=== PATIENT | male | born 1950 | race Caucasian/White ===

== ENCOUNTER → 2016-12-23 | Outpatient (CLI) | payer MEDICARE, OTHER ==
[~2016-12-23] MED LIST: ACETAMINOPHEN PO; ALBUTEROL MININEB NEB; ALLOPURINOL300 MG PO; ASA-CA CARB-MA325 MG PO; ASPIRIN81 M2 PO; BUSPAR15 M1 PO; CITALOPRAM HBR40 MG PO; CLARITIN10 M2 PO; CLARITIN10 M3 PO; COLCHICINE0.6 M1 PO; COUMADIN5 MG PO; FISH OIL 1,2001 CAP PO; FUROSEMIDE40 MG PO; GLIPIZIDE10 MG PO; GLUCOPHAGE500 MG PO; GLUCOTROL PO; HUMIBID-LA600 MG PO; ISOSORBIDE MONO60 M1 PO; LASIX20 MG PO; LIPITOR PO; LOVENOX100 MG/ML INJ; METOPROLOL SUCC50 MG PO; NIASPAN PO; NYSTATIN5 ML PO; PLAVIX PO; PREDNISONE PO; PRILOSEC20 M1 PO; PRINIVIL10 MG PO; PRINIVIL20 M1 PO; PRINIVIL40 MG PO; SYMBICORT INH; TOPROL XL 50 MG50 MG PO; TRAZODONE HCL100 MG PO; TROKENDI XR200 MG PO; VIAGRA PO; ZITHROMAX500 MG PO
[2016-12-23 10:18] LABS: BUN/CREATININE RATIO 21.66; CALCIUM SERUM 9.2 mg/dL (8.4-10.2); CREATININE SERUM 1.2 mg/dL (0.6-1.4); GLOM FILT RATE Estimated 62.7 mL/min (>60); POTASSIUM 4.5 mmol/L (3.5-5.1); URIC ACID 10.8 mg/dL (2.6-7.2)
== END | disposition home or self-care (01) ==
LOC: SLAB 09:32
PROVIDERS: Internal Medicine
DX: M10.9 Gout, unspecified (principal)
CPT/HCPCS: 36415; 80048; 84550

== ENCOUNTER → 2017-02-10 | Day surgery (SDC) | payer MEDICARE, OTHER ==
--- NOTE | ~2017-02-10 | OR ---
Unit #: [id number] #: [id number] Patient: KENAN ROCHA [id number] [address] [place], [place] [address] [id number] MR#: [id number] NAME: KENAN ROCHA ROOM: Date of Procedure: 02/10/2017 Admission Date: 02/10/2017 Surgeon: Wilfred Ocampo M.D. : 1950 Attending Physician: Wilfred Ocampo M.D. Referring Physician: Wilfred Ocampo M.D. Primary Care Physician: Irina Tilley M.D. OPERATIVE REPORT PREOPERATIVE DIAGNOSIS Colorectal cancer screening in an average-risk patient. PROCEDURES PERFORMED Colonoscopy and polypectomy. POSTOPERATIVE DIAGNOSES 1. The patient had 4 polyps, 1 each in the sigmoid colon, descending colon, ascending colon, and cecum. The polyps ranged in size from 8 mm to 2 cm. The largest polyp being in the sigmoid colon. All the polyps were removed after snare cautery polypectomy, retrieved and sent for histology. 2. Mild sigmoid and descending colon diverticulosis. 3. Rest of examination up to cecum and terminal ileum was normal. The quality of the prep was fair. RECOMMENDATIONS Follow up results of polyp histology and consider repeat colonoscopy in 3 to 5 years. SEDATION USED MAC. DESCRIPTION OF PROCEDURE Following detailed explanation of the potential risks and complications of a colonoscopy, namely perforation, bleeding, and complications related to sedation, the patient was brought to GI lab and laid in the left lateral decubitus position. A digital rectal examination was performed, which was normal. Lubricated tip of the Olympus video colonoscope was inserted through the anus and advanced under direct vision. The scope was advanced and passed up to sigmoid into descending colon. Multiple small diverticula were seen in this area. The scope tip was then navigated all the way up to cecum with visualization of the ileocecal valve and the appendiceal orifice. Preparation was good with good visualization and photodocumentation was obtained. Last few inches of terminal ileum also visualized after intubation of the ileocecal valve and appeared normal. Successive segments of the colonic mucosa were examined upon withdrawal. Four polyps were found, one each in the cecum, ascending colon, descending colon, and sigmoid colon. These ranged in size from 8 mm to 2 cm. The largest polyp being in the sigmoid colon. All the polyps were removed using snare cautery polypectomy. They were retrieved and sent for histology. No additional polyps noted. Other than the left-sided diverticula, no additional abnormalities were found. The patient did not Unit #: [id number] #: [id number] Patient: KENAN ROCHA have any internal hemorrhoids at anal verge. The scope was then withdrawn. The patient returned to the recovery area. He tolerated the procedure without any postprocedure complications. Dictated by... Librado Yoder/nazanin TD: 02/10/2017 23:36 JOB #: [id number] OPERATIVE REPORT Page 1 of 1 X Wilfred Ocampo MD X PROCEDURE OPERATIVE NOTE
== END | disposition home or self-care (01) ==
LOC: COPS 12:47
PROVIDERS: Internal Medicine Gastroenterology
PROC: 0DBN8ZX Excision of Sigmoid Colon, Via Natural or Artificial Opening Endoscopic, Diagnostic (ICD-10-PCS; 2017-02-10)
PROC: 0DBM8ZX Excision of Descending Colon, Via Natural or Artificial Opening Endoscopic, Diagnostic (ICD-10-PCS; 2017-02-10)
PROC: 0DBK8ZX Excision of Ascending Colon, Via Natural or Artificial Opening Endoscopic, Diagnostic (ICD-10-PCS; principal; 2017-02-10 14:00)
PROC: 0DBH8ZX Excision of Cecum, Via Natural or Artificial Opening Endoscopic, Diagnostic (ICD-10-PCS; 2017-02-10 14:00)
DX: Z12.11 Encounter for screening for malignant neoplasm of colon (principal); D12.4 Benign neoplasm of descending colon; D12.0 Benign neoplasm of cecum; D12.5 Benign neoplasm of sigmoid colon; K63.5 Polyp of colon; K57.30 Diverticulosis of large intestine without perforation or abscess without bleeding; I10 Essential (primary) hypertension; E78.5 Hyperlipidemia, unspecified; E11.9 Type 2 diabetes mellitus without complications; Z79.84 Long term (current) use of oral hypoglycemic drugs; Z79.899 Other long term (current) drug therapy; Z79.01 Long term (current) use of anticoagulants; Z95.0 Presence of cardiac pacemaker; Z95.1 Presence of aortocoronary bypass graft; I25.2 Old myocardial infarction; Z79.51 Long term (current) use of inhaled steroids; Z87.01 Personal history of pneumonia (recurrent)
CPT/HCPCS: 82947; 88305